=== PATIENT | male | born 1950 | race Two or more races ===

== ENCOUNTER 2021-04-02 07:07 | Day surgery (SDC) | payer OTHER ==
[~2021-04-02 07:07] MED LIST: ASA81 MG; COZAAR50 MG PO; GLIPIZIDE XL10 MG PO; LIPITOR40 MG PO; METFORMIN HCL1000 M2 PO; PLAVIX75 MG; TOPROL XL25 M1 PO
[2021-04-02] MEDS ORDERED: ULTRACET PO (10:49)
== END 2021-04-02 14:03 | disposition home or self-care (01) ==
LOC: CIR.AMB 07:07
PROVIDERS: ATTEND Surgery
DX: C34.90 Malignant neoplasm of unspecified part of unspecified bronchus or lung (principal); Z20.822 Contact with and (suspected) exposure to COVID-19
CPT/HCPCS: 36561; C1751